=== PATIENT | female | born 1965 | race Caucasian/White ===

== ENCOUNTER 2018-02-10 09:55 | Emergency (ER) | payer OTHER ==
[~2018-02-10] VITALS: Ht 160 cm; Wt 90.7 kg
[~2018-02-10 09:55] MED LIST: IBUPROFEN600 MG PO
--- NOTE | 2018-02-10 10:37 | Emergency Room Report ---
History of Present Illness General Chief Complaint: Lower Extremity Injury Source: Patient Present Illness HPI Patient is a 52-year-old female who presented after sharp right knee pain after being poorly struck by a wheelchair at work. As she reports having increased pain to the anterior portion of the right knee. This is sharp in nature. Worse with movements.The patient had a prior history of liver transplant. She is not allowed to take NSAIDs. She is allowed to take small doses of Tylenol per primary physician Allergies: Coded Allergies: No Known Allergies (Unverified , 02/01/12) Patient History Past Medical History: see triage record Reviewed Nursing Documentation: PMH: Agreed; PSxH: Agreed Nursing Documentation-PMH Past Medical History: No History, Except For Review of Systems All Other Systems: negative except mentioned in HPI Physical Exam Vital Signs Date Time Temp Pulse Resp B/P (MAP) Pulse Ox O2 Delivery O2 Flow Rate FiO2 02/10/18 10:05 97.7 89 18 127/87 98 Room Air General Appearance: well appearing, no apparent distress, alert, GCS 15, obese Head: normocephalic, atraumatic ENT: hearing grossly normal, normal voice Neck: full range of motion, supple Respiratory: no respiratory distress, speaking full sentences Musculoskeletal: other - soft tissue swelling to skin, no laceration, no ligamentous laxity Neurologic: normal inspection, alert, oriented x3, normal gait Psychiatric: mood/affect normal Skin: no rash Medical Decision Making Diagnostic Impression: Primary Impression: Contusion, knee ER Course Patient presented for knee pain. Differential diagnosis included was not limited to popliteal aneurysm, arthritis, dislocation, ligamentous injury, septic joint among others.Because of complexity of patient's case imaging studies were ordered.X-ray imaging of the left knee 4 views interpreted by me showed normal bony alignment without evident fracture. Cleaning patient is given [place] for pain. She is advised to follow-up with workers [facility] physician. The patient was placed on light duty.The patient was advised not to take [place] and Tylenol as she does have her liver transplant. Last Vital Signs Date Time Temp Pulse Resp B/P (MAP) Pulse Ox O2 Delivery O2 Flow Rate FiO2 02/10/18 10:05 97.7 89 18 127/87 98 Room Air Status: improved Disposition: HOME, SELF-CARE Condition: Stable Scripts Hydrocodone Bit/Acetaminophen 5-325* (NORCO 5-325*) 1 Each Tablet 1 TAB ORAL Q12HR PRN for For Pain, #8 TAB 0 Refills Prov: Real Villareal MD 02/10/18 Docusate Sodium* (COLACE*) 100 Mg Capsule 100 MG ORAL TWICE A DAY, #20 CAP Prov: Real Villareal MD 02/10/18 Referrals: NON PHYSICIAN (PCP) Real Villareal MD Feb 10, 2018 10:37
[2018-02-10] MEDS ORDERED: Norco 5mg/325mg tab ORAL ONE (10:45)
[2018-02-10] MEDS ORDERED: NORCO 5-325 TA1 EACH ORAL (11:31)
[2018-02-10] MEDS ORDERED: COLACE100 MG ORAL (11:31)
[2018-02-10 11:43] VITALS: BP 127/87
--- NOTE | 2018-02-10 12:03 | Diagnostic Imaging Report ---
Indication: Pain Knee pain/trauma 3 views of the right knee were obtained. Findings: No acute fracture, malalignment, or joint effusion are identified. Joint space is relatively well-maintained. Marginal spurs are noted indicative of mild arthrosis. Impression: Negative for acute findings.
== END 2018-02-10 11:44 | disposition home or self-care (01) ==
LOC: EMR 10:32
DX: S80.01XA Contusion of right knee, initial encounter (principal); W22.8XXA Striking against or struck by other objects, initial encounter; Y92.531 Health care provider office as the place of occurrence of the external cause; Y99.0 Civilian activity done for income or pay
CPT/HCPCS: 99283